=== PATIENT | male | born 1975 | race Caucasian/White ===

== ENCOUNTER → 2022-03-21 16:53 | Outpatient (CLI) | payer BC, SELFPAY ==
--- NOTE | ~2022-03-21 | XR_ITS ---
EXAM: XR knee RT 3V DATE: 03/21/2022 17:25 HISTORY: ACUTE PAIN OF RT KNEE . COMPARISON: None available. FINDINGS: Normal mineralization. No fracture or dislocation. No lytic or blastic lesion. Moderate me dial joint space narrowing. Mild tricompartmental osteophytosis. Small volume joint fluid. No erosion or periosteal change. Soft tissues within normal limits. IMPRESSION: Tricompartmental osteoarthritis, moderate in the medial compartment. Small right knee mandy nt effusion. Reviewed, dictated and finalized at location K. IMPRESSION: Tricompartmental osteoarthritis, moderate in the medial compartment . Small right knee joint effusion.
--- NOTE | ~2022-03-21 | XR_ITS ---
EXAM: XR foot LT min 3V, XR foot RT min 3V DATE: 03/21/2022 17:25 HISTORY: ACUTE PAIN OF RT KNEE; MAHESH FOOT PAIN . COMPARISON: None available. FINDINGS: Normal mineralization. No fracture or dislocation. No lytic or blastic lesion. Mild bilate ral hallux valgus, worse on the left. Mild bilateral first MTP joint osteoarthritis. Plantar and Achi lles enthesopathy. No erosion or periosteal change. Soft tissues within normal limits. IMPRESSION: No acute osseous finding in the feet. Chronic and incidental findings detailed above. Reviewed, dictated and finalized at location K. IMPRESSION: No acute osseous finding in the feet. Chronic and incidental findin gs detailed above.
== END ==
DX: M79.671 Pain in right foot (principal); M79.672 Pain in left foot; M17.11 Unilateral primary osteoarthritis, right knee
CPT/HCPCS: 73562; 73630